=== PATIENT | female | born 1970 | race Caucasian/White ===

== ENCOUNTER → 2019-04-24 | Outpatient (CLI) | payer OTHER | LOC: MC.RAD 07:44 | DX: Z12.31 Encounter for screening mammogram for malignant neoplasm of breast (principal) ==

== ENCOUNTER 2020-02-07 09:21 | Day surgery (SDC) | payer OTHER ==
[~2020-02-07] VITALS: Ht 165.1 cm; Wt 56.0 kg
[2020-02-07 09:43] VITALS: BP 106/67; PULSE 53; TEMP 98.8
[2020-02-07 11:15] VITALS: BP 91/66; PULSE 61; TEMP 97.3
--- NOTE | 2020-02-07 11:15 | NUR ---
TO RM 5 PER CART FROM ENDOSCOPY. ALERT ORIENTED X3, TALKING TO STAFF AND FRIEND GABINO. RECEIVED WARM BLANKET. RECEIVED WATER, MUFFIN WITH PEANUT BUTTER. DR LIGHT INTO TALK WITH JAKY AND KYLAH LLOYD.
[2020-02-07 11:30] VITALS: BP 84/52; PULSE 50
--- NOTE | 2020-02-07 11:30 | NUR ---
RECEIVED 2ND GLASS OF WATER. AND 2ND WARM BLANKET
[2020-02-07 11:45] VITALS: BP 87/50; PULSE 50
--- NOTE | 2020-02-07 11:45 | NUR ---
DISCUSSED PATIENT B/P BEING LOW. PATIENT PULLED OUT HER RED CROSS DONATION CARD. MOST OF THE B/P WERE IN 90'S OVER 60'S.
[2020-02-07 12:00] VITALS: BP 86/57; PULSE 58
--- NOTE | 2020-02-07 12:00 | NUR ---
RECEIVED DISCHARGE INSTRUCTIONS AND VERBALIZED UNDERSTANDING. DISCONTINUED IV AND INT- CATHETER INTACT.
--- NOTE | 2020-02-07 12:10 | NUR ---
DISCHARGED PER BY NURSING STAFF TO PRIVATE CAR IN CARE OF FRIEND GABINO.
== END 2020-02-07 12:38 | disposition home or self-care (01) ==
LOC: SDCO 09:21
DX: Z12.11 Encounter for screening for malignant neoplasm of colon (principal); D12.8 Benign neoplasm of rectum; Z88.1 Allergy status to other antibiotic agents; Z20.828 Contact with and (suspected) exposure to other viral communicable diseases; D64.9 Anemia, unspecified
CPT/HCPCS: J2704; J7120

== ENCOUNTER → 2021-01-30 | Outpatient (CLI) | payer OTHER | LOC: MC.RAD 11:13 | DX: Z12.31 Encounter for screening mammogram for malignant neoplasm of breast (principal) ==